=== PATIENT | female | born 1930 | race Caucasian/White ===

== ENCOUNTER 2017-01-08 21:02 | Inpatient (IN) | payer OTHER ==
[~2017-01-08] VITALS: Ht 152.4 cm; Wt 47.8 kg
--- NOTE | ~2017-01-08 | CON ---
[place], [place] REPORT OF CONSULTATION NAME: ADAMARIS FOWLER UNIT #: [id number] ROOM: [facility] DOCTOR: TEZ NEFFDARRIUSGISELLA BIRTHDATE: [birth year] DOS: 01/14/2017 REQUESTING PHYSICIAN: Dr. Davis. REASON FOR CONSULTATION: Elevated troponin. ASSESSMENT: 1. Current presentation for hip fracture. 2. Elevated troponin. 3. No cardiac complaints. 4. Long history of tobacco abuse. The patient quit 2 years ago. 5. Reported dementia. 6. Hyperlipidemia, currently the patient on Lipitor. 7. Negative CTA for pulmonary embolism. 8. Chronic obstructive pulmonary disease. 9. Stage III chronic kidney disease. PLAN: 1. Check CPK and MB. 2. Proceed with an echocardiogram. 3. Agree with Toprol-XL. 4. Continue aspirin/Lipitor. 5. I will hold any further test now pending the results of the echocardiogram. 6. We will consider ischemic workup and can be done as an outpatient as long as the patient is asymptomatic. 7. Early followup within 2-4 weeks upon discharge. HISTORY OF PRESENT ILLNESS: The patient is a pleasant 86-year-old female unknown to our practice, was referred by Dr. Davis for her evaluation of elevated troponin. She is status post hip fracture repair. The patient from the cardiology point of view denies any specific complaint. No chest pain, chest pressure, heaviness, tightness. No jaw pain. No left arm pain. No back pain. Denies any symptomatic palpitation or any associated dizziness, lightheadedness or near syncope. Functional capacity is quite limited due to her hip fracture. She sleeps usually on one pillow with no reported PND, orthopnea or pedal edema. Never had any heart problem in the past. No fever. No chills. No night sweats. Appetite is recovering. PAST MEDICAL HISTORY: As detailed in my assessment. SOCIAL HISTORY: The patient quit smoking 2 years ago. Denies any history of heavy alcohol or illicit drug abuse. FAMILY HISTORY: Not applicable in view of patient age. CURRENT MEDICATIONS: Levaquin, Lovenox, meropenem, albuterol, Toprol, Lipitor, aspirin, vitamin D, [place], Zofran, bisacodyl and Tylenol. ALLERGIES: The patient is allergic to PENICILLIN. [place], [place] REPORT OF CONSULTATION NAME: ADAMARIS FOWLRE UNIT #: [id number] ROOM: [facility] DOCTOR: DEVON REAGAN MD BIRTHDATE: [birth year] REVIEW OF SYSTEMS: Currently, the patient denies any headache, diplopia or blurry vision. No fever. No chills. No night sweats. No abdominal pain. No bright red blood per rectum or tarry stools. Admits to joint pain and muscular pain. No anxiety. No depression. No polyuria. No polydipsia. No skin rash. Review of other systems has been negative. PHYSICAL EXAMINATION: GENERAL: The patient is alert and oriented x 3, quite pleasant. VITAL SIGNS: The patient weighs 47.7 kilograms, height 5 feet tall, blood pressure 116/54, heart rate 78, respiratory rate of 16, temperature 98.1. HEENT: Extraocular muscle intact. Pupils equal, round, reactive to light. NECK: Good carotid upstroke. Unable to appreciate any bruit. HEART: S1, S2 with a faint holosystolic murmur at the left upper sternal border. No rub. No sternal heave. CHEST AND BACK: Not examined. LUNGS: Decreased air movement, but no marilou wheezing or rales. ABDOMEN: Soft, nontender, present bowel sounds. No masses. No bruits. LOWER EXTREMITIES: There is no edema, with faint distal pulses. NEUROLOGIC: Grossly nonfocal. SKIN: No significant rash. LABORATORY DATA: White count 6.8, hemoglobin 8.2, 79% of neutrophils. Potassium 3.6, creatinine 0.8, GFR more than 60. Troponin 0.321, followed by 0.37, then 0.34, then 0.54, then 0.79, initially on January 08 it was less than 0.015. DEVON REAGAN MD CM:CONSTR:REPORT OF CONSULTATION 1036 01/16/17 1547 interface
--- NOTE | ~2017-01-08 | PR ---
[place], [place] PROGRESS NOTE NAME: ADAMARIS FOWLER UNIT #: [id number] ROOM: [facility] DOCTOR: JASE HOWARD MD,SEN BIRTHDATE: [birth year] DOS: 01/15/2017 PULMONARY PROGRESS NOTE SUBJECTIVE: She has been comfortably resting on the bed and was getting physical therapy intermittently during the current hospitalization, has not been noted symptoms of chest pain or coughing. OBJECTIVE: VITAL SIGNS: Normal temperature, respiratory rate 17, heart rate 76, blood pressure 105/41. Pulse oxygen saturation on 2 liters cannula is 91% saturation. HEENT: No acute change. NECK: Supple. CARDIOVASCULAR: S1, S2 audible. LUNGS: Noted with generally decreased breath sounds without any wheeze or crackle. ABDOMEN: Soft, nontender. LABORATORY DATA: CBC: Hemoglobin 7.2, hematocrit 23.3, otherwise CBC normal. BMP normal: BUN and creatinine. IMPRESSION: The patient with resolving acute hypoxic respiratory failure, exacerbation of chronic obstructive pulmonary disease. Resolution of the small area of atelectasis left lower lobe and pleural effusion. PLAN OF MANAGEMENT: No changes from the pulmonary standpoint at this time. Anemia management per the primary care physician as well. Continuation of bronchodilators as well. Usual care. Other supportive plan of therapy and care. Titrate oxygen to maintain a saturation of 92% or greater. SEN LAGUNA MD CM:PNTRANS [id number] SEN HOWARD MD 01/16/17 0018 interface
--- NOTE | ~2017-01-08 | PR ---
[place], [place] PROGRESS NOTE NAME: ADAMARIS FOWLER UNIT #: [id number] ROOM: [facility] DOCTOR: JASE HOWARD MD,SEN BIRTHDATE: [birth year] DOS: 01/14/2017 SUBJECTIVE: The patient has been noted without any ongoing acute complaints at this time appeared to be comfortable without any distress. OBJECTIVE: VITAL SIGNS: For the patient which has been recorded showed normal temperature, respiratory rate 26-19, heart rate 78, blood pressure 116/54. The pulse oxygen saturation of the patient recorded on 3 liters 98% saturation. HEENT: Age-related changes. Head was atraumatic. Eyes nonicterus. NECK: Supple. CARDIOVASCULAR: S1, S2 audible. No added sounds. LUNGS: Noted clear to auscultation bilaterally. ABDOMEN: Flat, soft, nontender. EXTREMITIES: Without any edema. LABORATORY DATA: BMP: BUN 26, creatinine was normal. IMPRESSION: 1. The patient with resolving acute hypoxic respiratory failure. 2. Severe protein-calorie malnutrition was also noted. Prealbumin 10. 3. Loss of chronic muscle mass as well. 4. Status post surgery for the acute fracture of the right side with open reduction internal fixation. 4. Resolution of the atelectasis of the left lung. Small pleural fluid postoperatively with resolving acute hypoxic respiratory failure and acute exacerbation of chronic obstructive pulmonary disease. PLAN OF MANAGEMENT: No changes in the therapy at this time will be recommended. Continue the patient's current therapy, plan of management, bronchodilators. Supportive care. correction facility consultation was noted in progress. SEN LAGUNA MD CM:PNTRANS [id number] SEN HOWARD MD 01/15/17102 interface
--- NOTE | ~2017-01-08 | O ---
[place], [place] OPERATIVE NOTE NAME: ADAMARIS FOWLER UNIT #: [id number] ROOM: 523 DOCTOR: SHADI HAWK DO BIRTHDATE: [birth year] DOS: 01/09/2017 PREOPERATIVE DIAGNOSIS: Right intertrochanteric hip fracture. POSTOPERATIVE DIAGNOSIS: Right intertrochanteric hip fracture. PROCEDURE: Right intertrochanteric hip fracture fixation. ESTIMATED BLOOD LOSS: 50 mL. ASSISTANTS: Reji. ANESTHESIA: Maryanne, SUGEY, Spinal. INDICATIONS: The patient is an 86-year-old female with a history of an unwitnessed fall at home. She suffered a minimally displaced intertrochanteric fracture of the right hip. The risks and benefits of the procedure were explained to the patient and her daughter preoperatively. Preoperative labs and x-rays were obtained including preoperative optimization. DESCRIPTION OF PROCEDURE: The right hip was marked. The patient was taken to the operative suite. A spinal anesthetic was performed by Anesthesia. When this was found to be adequate, the patient was placed supine on the fracture table. The right lower extremity was extended with minimal traction using the fracture table. The left lower extremity was flexed and externally rotated and placed in a well-padded trough. The C-arm was utilized to evaluate the fracture site. The time out was performed. The right lower extremity was prepped and draped in the usual orthopedic fashion. The area just proximal to the greater trochanter was injected with Marcaine 0.25% with epinephrine. A 3 cm incision was made sharply with a scalpel. Subcutaneous tissue was spread down to the level of the fascia. The fascia was divided longitudinally. A self-retaining retractor was utilized. The partially threaded guidewire was advanced to the level of the greater trochanter and into the shaft. The position was evaluated under C-arm guidance in multiple planes. When this was found to be adequate, the cannulated reamer with a soft tissue protector were placed over the guidewire and advanced to the level of the lesser trochanter. The instrumentation was removed. The Synthes TFN nail was advanced under C-arm guidance to the desired level. This was evaluated under C-arm. The guide for the helical blade at 130 degree ankle was advanced to the level of the skin. The skin was injected with Marcaine with epinephrine and a small incision was made. Subcutaneous tissue was spread down to the level of the bone using hemostat. The trocars were advanced to the level of the bone. The guidewire was placed through these cannulas and advanced to the level of the subcortical bone of the femoral head. Position was evaluated under C-arm in multiple planes. Once this was found to be adequate, the length was measured. The reamer was set to 90 mm and advanced over the guidewire. The 90 mm helical blade was then advanced over the guidewire under C-arm guidance. When this was found to be adequate, the set [place], [place] OPERATIVE NOTE NAME: ADAMARIS FOWLER UNIT #: [id number] ROOM: 523 DOCTOR: SHADI HAWK DO BIRTHDATE: [birth year] screw was tightened proximally. The fracture site was evaluated and found to be reduced. Attention was then turned to the distal locking screw. The triple guides were advanced to the radiolucent guide and the skin was injected with Marcaine 0.25% with epinephrine. A 1 cm incision was made. Subcutaneous tissue was spread down to the level of the bone. The cannulas were advanced to the level of the bone. The cannulated drill was advanced from lateral to medial through the distal locking hole of the IM nail. The length was measured from the calibrated drill. A 34 mm distal locking screw was placed and evaluated under C-arm guidance in multiple planes. This was found to be adequate. The C-arm was utilized to evaluate the hardware and fracture site and the positioning was adequate with near anatomic reduction. All incisions were irrigated with normal saline and closed in a layered fashion with 0 Vicryl for the fascia, followed with 2-0 Vicryl for the subcutaneous level and skin ansley. The wounds were covered with Xeroform, 4 x 4s and Tegaderm. The patient was returned to a supine position. The patient was taken to the recovery room in satisfactory condition. Sponge and needle count correct. Estimated blood loss 50 mL. FINDINGS: Minimally displaced intertrochanteric fracture, right hip. COMPLICATIONS: None. SPECIMENS: None. DRAINS: None. PACKING: None. IMPLANTS: Synthes TFN 10 mm x 170 x 130 degree trochanteric nail, helical blade 11 x 90 mm, distal locking screw 4 mm x 34 mm. PREOPERATIVE ANTIBIOTICS: Clindamycin 600 mg. [place], [place] OPERATIVE NOTE NAME: ADAMARIS FOWLER UNIT #: [id number] ROOM: 523 DOCTOR: SHADI HAWK DO BIRTHDATE: [birth year] SHADI HAWK DO CM:OPRECORD:OPERATIVE NOTE [id number] SHADI HAWK DO 01/09/17 1617 interface
--- NOTE | ~2017-01-08 | PR ---
[place], [place] PROGRESS NOTE NAME: ADAMARIS FOWLER UNIT #: [id number] ROOM: [facility] DOCTOR: SEN ABREU MD BIRTHDATE: [birth year] DOS: 01/16/2017 ADDENDUM SUBJECTIVE: The patient was independently seen and examined today. History confirmed. Physical examination performed. All the available labs were reviewed. The note done by the lead medical technologist approved. The assessment and management changes were personally made for today's visit. She has been comfortably resting, sitting on the chair, awake and alert, and using oxygen supplementation nasal cannula. Denies any shortness of breath, coughing, or chest pain. OBJECTIVE: VITAL SIGNS: Normal temperature, respiratory rate 21, heart rate 77, blood pressure 109/64. Pulse oxygen saturation on 2 liters nasal cannula 98-100% saturation recorded. HEENT: Age-related changes. NECK: Supple. CARDIOVASCULAR: S1, S2 audible. LUNGS: [id number] decreased breath sounds without wheezing. ABDOMEN: Soft, nontender. LABORATORY DATA: CBC: Hemoglobin 7.5, hematocrit 24.4 was noted same as previously, and normal WBC and platelet count. The BMP was noted normal except CO2 of 33, which is also noted stable and elevated previously. IMPRESSION: 1. The patient with resolving acute respiratory failure as well as chronic obstructive pulmonary disease exacerbation, on bronchodilators. 2. Anemia. 3. Status post surgery for the hip fracture was also noted. 4. Severe debility with moderate severe protein calorie malnutrition and muscle mass loss. PLAN OF TREATMENT: 1. The patient will be continued on current plan of therapy at this time, would benefit from placement in correction facility. The social science analyst consultation in progress. 2. Anemia management for the patient or blood transfusion need to be determined by the primary care attending. [place], [place] PROGRESS NOTE NAME: ADAMARIS FOWLER UNIT #: [id number] ROOM: [facility] DOCTOR: SEN ABREU MD BIRTHDATE: [birth year] SEN LAGUNA MD CM:PNTRANS [id number] SEN HOWARD MD 01/16/172300 interface
--- NOTE | ~2017-01-08 | PR ---
[place], [place] PROGRESS NOTE NAME: ADAMARIS FOWLER UNIT #: [id number] ROOM: [facility] DOCTOR: SEN ABREU MD BIRTHDATE: [birth year] DOS: 01/13/2017 PULMONARY PROGRESS NOTE SUBJECTIVE: She has been noted comfortable at this time. Shortness of breath has been improving. There were no symptoms of chest pain. She has not been noted any temperature elevation. She has not reported any symptoms of hemoptysis. OBJECTIVE: VITAL SIGNS: The vital signs which has been recorded for the patient shows the temperature noted as normal. The respiratory rate is 18, heart rate 93, blood pressure 117/55. Pulse oxygen saturation on 2 L cannula is 100% saturation. HEENT: Examination showed no new change. NECK: Supple. CARDIOVASCULAR: S1, S2 audible. LUNGS: The patient was noted without any wheezing or crackle. Breath sounds are noted moderately decreased bilaterally. ABDOMEN: Soft, nontender. LABORATORY DATA: The patient's BMP: BUN 25, creatinine 1.04. The CBC this morning was noted with normal WBC count, hemoglobin 8.2, hematocrit 26.0, platelet count was normal. IMAGING STUDIES: The chest x-ray shows no acute pulmonary infiltration. All the abnormality, which has been noted previously with left lung is most likely related to atelectasis, has been resolved. IMPRESSION: The patient with acute postoperative respiratory failure with exacerbation of chronic obstructive pulmonary disease, responding to bronchodilators; atelectasis, postoperative, not uncommon, in the left lower lob is also resolving. PLAN OF MANAGEMENT: Continue with bronchodilators administration. Continuation of the oxygen supplementation as necessary to maintain saturation 90% greater. Ambulation, physical therapy was advised. Supportive care, plan of management. The patient would not require any use of corticosteroids since she has been showing progressive resolution of the current management of chronic obstructive pulmonary disease with current medical treatment. [place], [place] PROGRESS NOTE NAME: ADAMARIS FOWLER UNIT #: [id number] ROOM: [facility] DOCTOR: SEN ABREU MD BIRTHDATE: [birth year] SEN L[place] MD CM:PNTRANS 1321 [id number] SEN HOWARD MD 01/14/17 0617 interface
--- NOTE | ~2017-01-08 | PR ---
[place], [place] PROGRESS NOTE NAME: ADAMARIS FOWLER UNIT #: [id number] ROOM: [facility] DOCTOR: ADILENE ALAS DO BIRTHDATE: [birth year] DOS: 01/16/2017 SUBJECTIVE: Patient was evaluated today. She is awake and oriented and in no acute distress. She is responsive and states she is feeling much better today than she has in the past couple of days. She is denying any chest pain, any shortness of breath, any nausea, vomiting, diarrhea or any other symptoms. She is working with physical therapy and is eating her breakfast and states her appetite has improved. OBJECTIVE: VITAL SIGNS: Temperature 98.1, pulse 72, respiratory rate 20, blood pressure 107/37 with bedside pulse oximetry of 96% on nasal cannula. GENERAL: Awake, alert, oriented, no acute distress. CARDIAC: Regular rate and rhythm without murmurs. PULMONARY: Somewhat diminished breath sounds, but no crackles could be heard. Some scattered wheezes are present, however. ABDOMEN: Soft, nontender, nondistended. EXTREMITIES: No erythema, edema or nodules. PSYCHIATRIC: Appropriate affect, good historian. NEUROLOGIC: No acute focal neuro deficits. ASSESSMENT: Resolving acute hypoxic respiratory failure from chronic obstructive pulmonary disease exacerbation. Atelectasis is continuing to improve and patient overall clinically has improved. PLAN: Patient is okay for discharge as this becomes an option from the primary team's perspective. Currently, she is working with physical therapy and recommendations are for her to go to a custodial facility, for which the approval is pending. Otherwise, continue with current care. Thank you for the consultation and please see Dr. Laguna's note for any further details. ADILENE ALAS DO [place], [place] PROGRESS NOTE NAME: ADAMARIS FOWLER UNIT #: [id number] ROOM: [facility] DOCTOR: ADILENE ALAS DO BIRTHDATE: [birth year] SEN LAGUNA MD CM:RONAL [id number] ADILENE ALAS DO 01/17/17 0615 interface
--- NOTE | ~2017-01-08 | CON ---
[place], [place] REPORT OF CONSULTATION NAME: ADAMARIS FOWLER UNIT #: [id number] ROOM: [facility] DOCTOR: SEN ABREU MD BIRTHDATE: [birth year] DOS: 01/12/2017 REASON FOR CONSULTATION: For the assessment of acute respiratory failure. HISTORY OF PRESENT ILLNESS: The patient is an 86-year-old elderly female who fell down resulting in acute fracture of the right hip for this patient at home. The patient underwent surgical intervention upon admission for the hip fracture under spinal anesthesia. The patient has been known with history of COPD, the patient developed increased shortness of breath and developed progressive acute respiratory failure. She has been transferred to Intensive Care Unit. The oxygen supplementation has been given by the Venturi mask for the patient. This morning as the patient was seen, she was sitting on the chair. She has been noted awake and alert. She reports no symptoms of shortness of breath at rest. Denies symptoms of coughing, chest pain or wheezing. One of the daughters has been present with the patient in the room at the time of the assessment. The history partly has been given by the patient's daughter as well. REVIEW OF SYSTEMS: CONSTITUTIONAL: Symptoms of fatigue and tiredness reported. There were symptoms of fevers or chills. EYES: Denies any burning, redness, tenderness. EARS, NOSE, THROAT: No sore throat, hoarseness, otalgia, postnasal drainage. CARDIOVASCULAR: No anginal pain, edema, pain of the lower extremity. GASTROINTESTINAL: Dysphagia, nausea, vomiting, diarrhea, abdominal pain, hematemesis, melena. CENTRAL NERVOUS SYSTEM: No dizziness, headache, diplopia, syncopal episodes. Remaining systems were reviewed of the patient, they were noted all negative. PAST MEDICAL HISTORY: Known with history of: 1. COPD for the patient as per daughter. 2. Chronic hypoxic respiratory failure, use of oxygen 2 liter nasal cannula reported. SOCIAL HISTORY: The patient is , has 2 children, lives at home with the family members. Denies alcohol use, illicit drug use was known. She used to have tobacco, one and half pack of cigarettes per day that has been discontinued couple of years ago as per daughter. There was no history of chronic alcohol use reported. No history of illicit drug use described or any history of occupation related pulmonary exposure reported. PAST SURGICAL HISTORY: Known for this patient on current admission, the patient has right intertrochanteric fracture, surgery and fixation for the patient on 01/09/2017. MEDICATIONS: Current administered medication were noted use of Lovenox, DuoNeb, Lipitor, metoprolol succinate, aspirin, vitamin D, Levaquin, cefepime, vancomycin and other p.r.n. medications administration. DRUG ALLERGY HISTORY: The patient noted as allergy to PENICILLINS. [place], [place] REPORT OF CONSULTATION NAME: ADAMARIS FOWLER UNIT #: [id number] ROOM: [facility] DOCTOR: JASE HOWARD MD,SEN BIRTHDATE: [birth year] PHYSICAL EXAMINATION: GENERAL: This is an 86-year-old elderly female patient appeared to be quite malnourished with loss of muscle mass with patient obvious assessment. Height of 5 feet, weight of 105 pounds, BMI 20.5. VITAL SIGNS: Shows temperature recorded as normal. The patient in the last 3 days, respiratory 16-22, heart rate 83-76, blood pressure 121/52-150/50. Pulse oxygen saturation for the patient on 3 liter nasal cannula was 98% saturation, previously noted with 4 liters as 95% saturation. HEENT: Examination shows severe loss of muscle mass. The patient's head was atraumatic. Oral mucosa dry. Eyes nonicterus. NECK: Supple. CARDIOVASCULAR: S1, S2 audible. LUNGS: The patient was noted without any wheezing. Occasional crackles were present. The breaths are noted generally diminished bilaterally. ABDOMEN: Soft, nontender. Bowel sounds are present. EXTREMITIES: The patient noted loss of muscle mass. Skin for this patient visible was noted with some bruising and chronic skin changes secondary to aging. MUSCULOSKELETAL: No major deformities for the patient was visible. CENTRAL NERVOUS SYSTEM: Does not show any focal neurologic deficit. LABORATORY DATA: CBC of the patient that was done on admission, WBC count of 9.5, hemoglobin 11.7, hematocrit 36.3, platelet count was normal. The PT, PTT for the patient on 01/09/2016 was normal as well on admission. CMP of the patient 01/08/2017 noted with normal BUN and creatinine, CO2 33. CT scan of the head for the patient 01/09/2017, was reported as no acute intracranial pathologies as well. CBC of this morning: WBC count was normal, hemoglobin 8.1, hematocrit 25.3, platelet count was normal. The BMP of patient that was done this morning, BUN 26, creatinine was normal, remaining electrolytes were normal. Arterial blood gas for the patient on 01/12/2017, pH of 7.35, pCO2 of 35, pO2 of 24. Venous blood gas on 50% oxygen, 35% oxygen supplementation Venturi mask, pH of 7.37, pCO2 of 52, pO2 of 74.4. Troponin for the patient noted minimally elevated this morning at 0.373 and 0.321. Review of the radiology data for this patient. The x-ray of the right hip for this patient that was done on 01/08 was reported intertrochanteric fracture of the right femur. The chest x-ray of the patient that was done on 01/08 shows changes of COPD were reported. There were no acute pulmonary infiltration or other abnormalities. Chest x-ray 01/09 was repeated, which showed the same finding. The patient's CT of the chest that was done on 01/07/2017 was also seen. There was no pulmonary embolism was visible. Lung parenchymal window for this patient, which were done was reviewed, showed this is not high resolution CT scan of the chest, however, possibility of some subpleural area of fibrosis was noted with honeycombing in the lungs with centrilobular emphysema changes were noted in the remaining lungs. There was no evidence of pulmonary embolism or any evidence of abnormal lymphadenopathy in the mediastinum or hilar area. One view chest x-ray, which was done 01/12/2017 for the patient was also reviewed. It shows small pleural fluid noted with possible area of atelectasis. Other changes of COPD, hyperinflation, remains the same. Some scoliosis of the [place], [place] REPORT OF CONSULTATION NAME: ADAMARIS FOWLER [place] UNIT #: [id number] ROOM: [facility] DOCTOR: JASE HOWARD MD,SEN BIRTHDATE: [birth year] thoracic spine was also visible. IMPRESSION: 1. The patient who has been currently admitted to the hospital noted with acute hypoxic respiratory failure with history of chronic hypercapnia and respiratory failure. The respiratory failure developed most likely secondary to the possibility of fluid overload, some area of atelectasis. There were no clinical signs for the patient consistent with acute pneumonia at the present time. 2. Possibility of interstitial pulmonary fibrosis cannot be completely excluded for this patient current assessment. 3. The patient with severe debility, muscle decondition was also seen and elderly status of the patient with very poor muscle mass. There was no finding for the patient described for the dysphagia. 4. Chronic metabolic alkalosis secondary to resting hypercarbia secondary to underlying COPD. PLAN OF TREATMENT: At the present time, monitoring to be continued. Obtain a PA lateral view chest x-ray in the morning. Give one dose of Lasix for the patient 40 mg daily as well. Repeat PA lateral chest x-ray to assess the current pleural fluid. Assess the echocardiogram results as well. Addition of the Dulera for the patient long-term management of COPD as well. Other supportive plan of management and care to be continued. Metabolic alkalosis secondary to chronic hypercarbia will be monitored. Obtain a prealbumin level in the morning. Nutrition support. Physical therapy and other plan of management and care. Continue oxygen supplementation to maintain a saturation of 92% or greater. The BiPAP at this time would not be needed. However, in case of worsening of the respiratory failure or hypoxia, certainly the BiPAP support could be used at that time. Thank you for allowing me to participate in the care of this patient. SEN LAGUNA MD CM:CONSTR:REPORT OF CONSULTATION 1159 01/13/17 0415 interface
--- NOTE | ~2017-01-08 | PR ---
[place], [place] PROGRESS NOTE NAME: ADAMARIS FOWLER [facility] #: [id number] UNIT #: [id number] ROOM: 410 DOCTOR: ADRIÁN PAIZ MD BIRTHDATE: [birth year] DOS: 01/11/2017 SUBJECTIVE: The patient was seen at her bedside today, 01/11/2017, for followup of her elevated troponin. She is an 86-year-old woman who had an unwitnessed fall at home. She was found to have a right hip fracture, which was repaired on 01/09/2017. Perioperatively, she was found to have an elevation in troponin at 0.079. This adrianne to 0.548. We were asked to comment on the significance of this finding. The patient continues to deny any chest pain. She is chronically short of breath and states that this has not changed. As noted by others, she does seem a bit confused. PHYSICAL EXAMINATION: VITAL SIGNS: Today, her pulse is 86 and regular, blood pressure is 150/50. She weighs 47.8 kg and has a body mass index of 20.6. NECK: Supple. She has no jugular distention. Carotids are full. LUNGS: Respirations are unlabored. Her chest is clear to auscultation and percussion. HEART: Has a regular rhythm with an S4 gallop. ABDOMEN: Soft and normally active. EXTREMITIES: Showed no edema. LABORATORY DATA: I did review her echocardiogram today. It shows normal left ventricular size, wall thickening and systolic function. She has aortic sclerosis as well as mitral annular calcification. She has no aortic stenosis and only mild mitral insufficiency. She does have moderate tricuspid insufficiency with Doppler evidence for moderately elevated right ventricular systolic pressures. Hemoglobin today is 8.9, hematocrit 28.8 with 9100 white cells. Sodium is 142, potassium 4.1, chloride 106, CO2 29, BUN 27, creatinine 0.97. A chest x-ray done on 01/09/2017 showed no acute disease. A CT scan of her chest that same date showed no evidence for pulmonary emboli, but she had chronic parenchymal changes consistent with emphysema. IMPRESSION: 1. Status post hip fracture from an unwitnessed fall with subsequent repair. The patient is unable to recall the fall and could not describe its mechanism. 2. Mild protein-calorie malnutrition. 3. Dementia. 4. Chronic obstructive pulmonary disease with history of previous cigarette abuse. 5. Elevated troponin, found incidentally. Echocardiogram shows no wall motion abnormality. PLAN: I agree with treating the patient with empiric beta blockers and aspirin and would consider a statin as well. A pharmacologic stress test after she has recovered somewhat would be helpful for risk stratification. We will continue to follow her intermittently in the hospital. I thank the hospitalist physicians for asking our advice regarding her care. [place], [place] PROGRESS NOTE NAME: ADAMARIS FOWLER UNIT #: [id number] ROOM: 410 DOCTOR: ADRIÁN PAIZ MD BIRTHDATE: [birth year] ADRIÁN PAIZ MD CM:PNTRANS 00 [id number] ADRIÁN PAIZ MD 01/11/172224 interface
--- NOTE | ~2017-01-08 | PR ---
[place], [place] PROGRESS NOTE [id number] UNIT #: [id number] ROOM: [facility] DOCTOR: DEVON REAGAN MD BIRTHDATE: [birth year] DOS: 01/16/2017 SUBJECTIVE: The patient is sitting up in a chair, does not appear in any distress. Denies any specific cardiac complaint. No chest pain, chest pressure, heaviness or tightness. No symptomatic palpitation. OBJECTIVE: VITAL SIGNS: Blood pressure 158/82, heart rate 99, respiratory rate of 14, temperature 97.4. NECK: Good upstroke, no bruit. HEART: S1, S2 with no rub. LUNGS: Decreased air movement, but no wheezing, no rales. EXTREMITIES: Lower extremities, no edema. ASSESSMENT AND PLAN: 1. Current admission for a hip fracture. The patient reported to have elevated troponin following her surgery. The echocardiogram confirmed normal LV function with no evidence of wall motion abnormalities. The patient continued to do well. Denies any specific cardiac complaint. At this time, I will continue with current medical regimen, but will increase the Toprol to twice a day. 2. Ischemic workup will be considered as an outpatient. The patient is cleared for rehabilitation and discharge. We will be seeing the patient on an outpatient within 4-6 weeks upon discharge. DEVON REAGAN MD CM:PNTRANS [id number] DEVON REAGAN MD 01/17/17 1705 interface
[~2017-01-08 21:02] MED LIST: ALBUTEROL2.5 MG/0.5 INH; ASPIRIN81 M2 PO; COMBIVENT RESPIM4 GM INH; EVISTA60 MG PO; LEVAQUIN750 MG PO; LIPITOR20 MG PO; NICOTINE PATCH1 EAC1 TD; OXYGEN NAS; SYNTHROID0.137 MG PO; SYNTHROID0.15 MG PO
[2017-01-08 21:09] VITALS: BP 158/75
--- NOTE | 2017-01-08 22:07 | NUR ---
LAST DOCTOR PATIENT SEEN WAS A DR. PRATEEK ALFORD.
[2017-01-08 22:08] LABS: BASO # 0.1 10*3/uL (0.0-0.1); BASO % 0.5 % (0.0-1.0); EOS # 0.2 10*3/uL (0.0-0.4); EOS % 1.6 % (1.0-4.0); HEMATOCRIT 36.3 % (37.0-47.0); HEMOGLOBIN 11.7 g/dl (12.0-16.0); LYMPH # 0.7 10*3/uL (1.3-4.4); LYMPH % 7.4 % (27.0-41.0); MEAN CELL VOLUME 91.7 fl (81.0-99.0); MEAN CORPUSCULAR HGB 29.5 pg (27.0-31.0); MEAN CORPUSCULAR HGB CONC 32.2 g/dl (33.0-37.0); MONO # 0.5 10*3/uL (0.1-1.0); MONO % 4.7 % (3.0-9.0); NEUT # 8.1 10*3/uL (2.3-7.9); NEUT % 85.2 % (47.0-73.0); PLATELET COUNT AUTOMATED 230 10*3/uL (130-400); RED BLOOD COUNT 3.96 10*6/uL (4.10-5.10); RED CELL DISTRI WIDTH 12.5 % (0-14.5); WHITE BLOOD COUNT 9.5 10*3/uL (4.8-10.8)
[2017-01-08 22:09] LABS: BILIRUBIN NEGATIVE (NEGATIVE); BLOOD 1+ (NEGATIVE); CLARITY CLEAR (CLEAR); COLOR YELLOW (YELLOW); GLUCOSE NEGATIVE (NEGATIVE); KETONE NEGATIVE (NEGATIVE); LEUKO ESTERASE NEGATIVE (NEGATIVE); NITRITE NEGATIVE (NEGATIVE)
[2017-01-08 22:15] LABS: BACTERIA TRACE; WBC 0-2 wbc/hpf (0-5)
[2017-01-08 22:17] LABS: ACT PARTIAL THROMBO TIME 25.6 SECONDS (20.8-31.5); COARSE GRANULAR CAST 0-2; INTERNATIONAL NORM RATIO 1.1 (2.0-3.5)
[2017-01-08 22:26] LABS: ALBUMIN 3.4 gm/dl (3.1-4.5); ALKALINE PHOSPHATASE 100 U/L (45-117); BUN 14 mg/dl (7-24); CHLORIDE 98 mmol/L (98-107); POTASSIUM 3.9 mmol/L (3.5-5.1); SGOT/AST 18 IU/L (3-35); SGPT/ALT 15 U/L (12-78); SODIUM 138 mmol/L (136-145); TOTAL PROTEIN 7.7 gm/dL (6.4-8.2); TROPONIN I < 0.015 ng/ml (<0.045)
[2017-01-08 22:51] VITALS: BP 118/74
[2017-01-08 23:10] VITALS: BP 158/59
[2017-01-09] VITALS (8 sets, daily range): BP systolic 116–160; BP diastolic 51–82
--- NOTE | 2017-01-09 00:10 | NUR ---
PATIENT REFUSED TO HAVE PICTURES OF R. SHOULDER SKIN TEAR TAKEN.
--- NOTE | 2017-01-09 01:00 | NUR ---
DR. WEBER TO FLOOR TO SEE PATIENT. NOTIFIED OF SKIN TEAR R. SHOULDER.
--- NOTE | 2017-01-09 01:38 | NUR ---
PATIENT MEDICATED SLOWLY WITH ZOFRAN PER PRN ORDER FOR C/O NAUSEA . SEE EMAR. REINFORCED USE OF CALL LIGHT.
[2017-01-09 06:34] LABS: HEMATOCRIT 34.5 % (37.0-47.0); HEMOGLOBIN 10.9 g/dl (12.0-16.0); MEAN CELL VOLUME 92.5 fl (81.0-99.0); MEAN CORPUSCULAR HGB 29.2 pg (27.0-31.0); MEAN CORPUSCULAR HGB CONC 31.6 g/dl (33.0-37.0); MEAN PLATELET VOLUME 10.4 fl (9.6-12.3); PLATELET COUNT AUTOMATED 212 10*3/uL (130-400); RED BLOOD COUNT 3.73 10*6/uL (4.10-5.10); RED CELL DISTRI WIDTH 12.5 % (0-14.5); WHITE BLOOD COUNT 10.1 10*3/uL (4.8-10.8)
--- NOTE | 2017-01-09 07:01 | NUR ---
PHYSICAL THERAPY Orders received. PAtient with the following fracture right LE: IMPRESSION: Intertrochanteric fracture of the right femur. Will require orthopedic consultation and possible surgery. Will await orthopedic advisement prior to initating PT. Thank you for this referral. Morena Galicia,PT
[2017-01-09 07:03] LABS: BUN 15 mg/dl (7-24); CHLORIDE 100 mmol/L (98-107); CHOLESTEROL 211 mg/dL (<200); HDL CHOLESTEROL 53 mg/dl (40-60); LDL CHOLESTEROL 142 mg/dL (9-159); PHOSPHOROUS 3.2 mg/dL (2.5-4.9); SODIUM 138 mmol/L (136-145); TRIGLYCERIDES 81 mg/dl (<150); VLDL CHOLESTEROL 16 mg/dL (6-40)
[2017-01-09 07:10] LABS: PLATELET SUFFICIENCY NORMAL (NORMAL); TOTAL CELLS COUNTED 100 #CELLS
--- NOTE | 2017-01-09 07:44 | NUR ---
Occupational Therapy referral received this date. Upon chart review x-rays reveal right intertrochanteric femur fracture. OT will await further OT activity orders following orthopedic consult. Thank you for this referral. Heather Cabrera OTR/l
[2017-01-09 07:57] LABS: VITAMIN D, 25-HYDROXY 13.6 ng/mL (30-100)
--- NOTE | 2017-01-09 08:00 | NUR ---
PATIENT IS RESTING COMFORTABLY IN BED. FAMILY IS AT THE BEDSIDE. PATIENT DENIES ANY PAIN AT THIS TIME. PATIENT DENIES ANY SOB OR DISCOMFORT ON 4LPM VIA NC. PATIENT IS BEDFAST DUE TO HIP FX THAT IS EXTERNALLY ROTATED. PATIENT IS A&OX3 AND CALL LIGHT WITHIN REACH. HOB ELEVATED. SEE ASSESSMENT.
--- NOTE | 2017-01-09 09:16 | NUR ---
DC ELECTROLYSIS ENGINEER WILL SEE FOR POSS SNF STAY.
--- NOTE | 2017-01-09 09:23 | NUR ---
DR. COTA IN TO SEE PATIENT. NO FURTHER ORDERS AT THIS TIME.
--- NOTE | 2017-01-09 09:27 | NUR ---
DR. HAWK CONSULTED ABOUT HIP FRACTURE. PATIENT NPO IN CASE CARINE IS ABLE TO COME DOWN FOR SURGERY TODAY.
--- NOTE | 2017-01-09 09:51 | NUR ---
In to see patient to discuss discharge plans. Patient lives at home with her daughter who assists in her ADL's. Does not have any equipment at home such as walker/wheelchair/cane. Does have oxygen at home 24 hours/day, she can't remember the oxygen company but says it is in [place]. Discussed snf placement, explained with her insurance the only snf facility that is in network is the [facility] in [facility], patient is fine with that. Also explained due to the holiday week with insurance companies closing she will not be able to get a pre authorization until approximately Saturday of next week. She says that is fine and wants to do whatever she needs to do to get better. Will fax referral when all clinicals, PT/OT evals are available.
--- NOTE | 2017-01-09 10:51 | NUR ---
PATIENT OFF THE FLOOR VIA BED TO SURGERY FOR RIGHT HIP FIXATION.
--- NOTE | 2017-01-09 11:25 | NUR ---
WENT INTO PATIENT'S ROOM TO EVALUATE WOUND TO RIGHT SHOULDER. PATIENT NOT IN ROOM AT PRESENT TIME NURSE STATED WAS IN SURGERY.
--- NOTE | 2017-01-09 14:12 | NUR ---
PHYSICAL THERAPY PAtient just arrived in room from surgery. Not appropriate for PT at this time. Sleeping and groggy. Thank you for this referral. Morena Galicia,PT
--- NOTE | 2017-01-09 14:13 | NUR ---
Occupational Therapy referral received. Patient just returned to medical floor from surgery. She is not awake or alert to participate in evaluation at his time. OT will attempt at a later time/date. Thank you for this referral. Heather Cabrera OTR/L
--- NOTE | 2017-01-09 15:31 | NUR ---
PHYSICAL THERAPY PAtient evaluated on 5, full evaluation to follow. Continue with PT as per plan of care with fall, acute fracture right femur s/p ither nailing or ORIF (surgical consult and note incomplete at time of eval), alarm and max (A) precautions. PAtient will require SNF for impaired mobility. PAtient is high complexity via chart review, tests and evaluation: 22868. Thank you for this referral. Morena Galicia,PT
--- NOTE | 2017-01-09 15:50 | NUR ---
Occupational Therapy evaluation completed this date on 5 with full eval to follow. Precautions include: WBAT RLE, IV UE, fall risk, hx of falls, dementia; disorientation, poor sit balance, lethargy, high complexity level. Recommend OT per POC and SNF upon d/c to enable return home at indep level. Thank you for this referral. Heatehr Cabrera OTR/l
--- NOTE | 2017-01-09 16:10 | NUR ---
NOTIFIED OF DYSPNEA AND OXYGEN SATURATION IN THE 70'S PATIENT IS NOW ON A NON-REBREATHER PLACED BY RESPIRATORY. WILL CONTINUE TO MONITOR AND THEN TITRATE DOWN.
--- NOTE | 2017-01-09 16:31 | NUR ---
PATIENT BEING TRANSFERRED TO ICCU-1. DR. DE JESUS SENDING PATIENT DOWN FOR EPISODE OF DYSPNEA.
[2017-01-09 17:04] LABS: TROPONIN I 0.079 ng/ml (<0.045)
--- NOTE | 2017-01-09 17:30 | NUR ---
RECEIVED INTO ICCU-[address] SCAN/5E ACCOMPANIED BY VIDA RN. HEART RATE 113. BP 160/63. PULSE OX 93% ON VENTURI MASK 35%. LUNGS CLEAR BILATERALLY. NO EDEMA NOTED. ALERT AND ORIENTED TIMES THREE. HAMM DRAINING CLEAR YELLOW URINE. SCD'S INTACT TO BILATERAL LEGS.
--- NOTE | 2017-01-09 17:56 | NUR ---
MEDICATED WITH TORADOL IV FOR COMPALINTS OF PAIN AND MOANING.
--- NOTE | 2017-01-09 19:29 | NUR ---
ATTEMPTED TO INSTRUCT PATIENT IN USE OF INCENTIVE SPIROMETERY. PATIENT AT THE TIME WAS CONFUSED AND HAD A HARD TIME UNDERSTANDING WHAT I WAS INSTRUCTING HER TO DO. INCENTIVE IN THE ROOM.
--- NOTE | 2017-01-09 22:39 | NUR ---
Shift chart check completed.24 HR chart check completed.
--- NOTE | 2017-01-09 23:41 | NUR ---
ON ASSESSMENT PATIENT AWAKENED FROM SOUND SLEEP FOR ASSESSMENT. SHE DENIED PAIN.ICE BAG REFRESHED TO RT HIP. DRESSING IS DRY AND INTACT.BILATERAL SCD'S ON. PEDAL PULSES PALPABLE. 35% VENTURI MASK IN PLACE WITH PULSE OX 96%. HAMM PATENT YELLOW URINE. SKIN WARM AND DRY. SEE ALL APPROPRIATE INTERVENTIONS.
[2017-01-10] VITALS (7 sets, daily range): BP systolic 90–127; BP diastolic 43–79
--- NOTE | 2017-01-10 02:50 | NUR ---
PT WAS REPOSITIONED FOR COMFORT, HER IV FOUND TO BE LEAKING. A NEW IV SITE OBTAINED LEFT FOREARM. BEDBATH/LINEN CHANGE. PT SAYS SHE USES A "CPAP" AT HOME AT NIGHT. NASAL CANNULA APPLIED AT 3L/MIN AND HER PULSE OX HAS BEEN STAYING >95%.
[2017-01-10 04:33] LABS: BASO # 0.1 10*3/uL (0.0-0.1); BASO % 0.5 % (0.0-1.0); EOS # 0.1 10*3/uL (0.0-0.4); EOS % 0.7 % (1.0-4.0); HEMATOCRIT 29.3 % (37.0-47.0); HEMOGLOBIN 9.4 g/dl (12.0-16.0); LYMPH # 0.5 10*3/uL (1.3-4.4); LYMPH % 5.3 % (27.0-41.0); MEAN CELL VOLUME 94.5 fl (81.0-99.0); MEAN CORPUSCULAR HGB 30.3 pg (27.0-31.0); MEAN CORPUSCULAR HGB CONC 32.1 g/dl (33.0-37.0); MEAN PLATELET VOLUME 10.7 fl (9.6-12.3); MONO # 0.7 10*3/uL (0.1-1.0); MONO % 7.2 % (3.0-9.0); NEUT # 8.6 10*3/uL (2.3-7.9); NEUT % 85.9 % (47.0-73.0); PLATELET COUNT AUTOMATED 161 10*3/uL (130-400)
[2017-01-10 04:57] LABS: ALBUMIN 2.7 gm/dl (3.1-4.5); ALKALINE PHOSPHATASE 77 U/L (45-117); BUN 14 mg/dl (7-24); CHLORIDE 104 mmol/L (98-107); CREATININE 1.04 mg/dL (0.55-1.02); PHOSPHOROUS 3.7 mg/dL (2.5-4.9); POTASSIUM 4.3 mmol/L (3.5-5.1); SGOT/AST 22 IU/L (3-35); SGPT/ALT 17 U/L (12-78); SODIUM 142 mmol/L (136-145); TOTAL PROTEIN 6.2 gm/dL (6.4-8.2)
--- NOTE | 2017-01-10 06:18 | NUR ---
PT YELLING OUT THAT HER RT HIP/LEG HURTING. MEDICATED WITH MORPHINE 2MG IV SLOWLY FOR PAIN "10"/10. ICE BAG REFRESHED TO HER OPERATIVE SITE.
--- NOTE | 2017-01-10 06:56 | NUR ---
SLEEPING SOUNDLY SINCE EARLIER MORPHINE, WITH NO FURTHER MOANING.
--- NOTE | 2017-01-10 11:29 | NUR ---
NOTIFIED OF TROPONIN RESULT.
--- NOTE | 2017-01-10 11:38 | NUR ---
PAGED REGARDING NEW CONSULT.
--- NOTE | 2017-01-10 11:40 | NUR ---
RETURNED CALL. INFORMED OF NEW CONSULT ORDER. NEW ORDER RECEIVED FOR ECHOCARDIOGRAM AM.
--- NOTE | 2017-01-10 13:09 | NUR ---
PHYSICAL THERAPY Pt was transfered to ICU, spoke with nursing and they contacted doctor for a new order to re-eval when medically appropriate. Briana Campuzano, CORPORATE WEBMASTER
--- NOTE | 2017-01-10 14:35 | NUR ---
Occupational Therapy Daily Note Pt move to ICCU this date. Doctor will resubmit orders when appropriate. ADRY Lynch/Adeola
--- NOTE | 2017-01-10 19:45 | NUR ---
PATIENT PUT BACK IN BED, AFTER BEING IN CHAIR FOR ABOUT 3.5HRS. PATIENT STOOD WELL, THEN STATED HER RIGHT LEG WOULDNT MOVE. PATIENT WAS ABLE TO TAKE A FEW STEPS TO THE BED. PATIENT STATED SHE HAD LITTLE PAIN WITH THE MOVE. PATIENT STATED SHE WANTED TO GO TO BED, AND REQUESTED HER 2200 MEDS EARLY. PATIENT GIVEN HER LIPITOR, LEFT WITH CALL LIGHT IN REACH.
[2017-01-11] VITALS: BP 109/52
--- NOTE | 2017-01-11 01:00 | NUR ---
PATIENT AWOKE DISORIENTED. THOUGHT SHE SEEN SOMEONE IN THE WINDOW. I REORIENTED HER, SHE STATED SHE KNEW SHE WAS IN THE HOSPITAL, BUT THOUGHT SINCE THE SURGERY WAS DONE, SHE WAS ABLE TO GET UP AND GET DRESSED. I EXPLAINED TO PATIENT SHE NEEDED THERAPY AND OTHER TEST TODAY. PATIENT DID KNOW TO USE HER CALL LIGHT TO CALL ME. WILL CONTINUE TO MONITOR. PATIENT IN VIEW OF STAFF.
[2017-01-11 04:00] VITALS: BP 125/47
--- NOTE | 2017-01-11 05:00 | NUR ---
PATIENT PULLED OFF BANDAGE TO INCISION, PATIENT YELLING SHE WANTS TO GET OUT OF HERE. PATIENT ALSO REMOVED BRANDING MACHINE OPERATOR. STATED WE ARE NOT KEEPING HER HERE. REORIENTED PATIENT, SHE BECAME APOLOGETIC AND ALLOWED ME TO REPLACE THE BANDAGE AND PLACE HEART MONITOR BACK ON. WILL CONTINUE TO MONITOR.
[2017-01-11 05:27] LABS: BASO # 0.1 10*3/uL (0.0-0.1); BASO % 0.5 % (0.0-1.0); EOS # 0.4 10*3/uL (0.0-0.4); EOS % 4.8 % (1.0-4.0); HEMATOCRIT 28.8 % (37.0-47.0); HEMOGLOBIN 8.9 g/dl (12.0-16.0); LYMPH # 0.7 10*3/uL (1.3-4.4); LYMPH % 7.2 % (27.0-41.0); MEAN CELL VOLUME 93.8 fl (81.0-99.0); MEAN CORPUSCULAR HGB CONC 30.9 g/dl (33.0-37.0); MEAN PLATELET VOLUME 10.9 fl (9.6-12.3); MONO # 0.7 10*3/uL (0.1-1.0); MONO % 7.2 % (3.0-9.0); NEUT # 7.3 10*3/uL (2.3-7.9); NEUT % 79.9 % (47.0-73.0); PLATELET COUNT AUTOMATED 175 10*3/uL (130-400); RED BLOOD COUNT 3.07 10*6/uL (4.10-5.10); RED CELL DISTRI WIDTH 13.2 % (0-14.5); WHITE BLOOD COUNT 9.1 10*3/uL (4.8-10.8)
[2017-01-11 05:41] LABS: CHLORIDE 106 mmol/L (98-107); CREATININE 0.97 mg/dL (0.55-1.02); POTASSIUM 4.1 mmol/L (3.5-5.1); SODIUM 142 mmol/L (136-145)
[2017-01-11 05:42] LABS: PHOSPHOROUS 1.8 mg/dL (2.5-4.9)
[2017-01-11 05:44] LABS: BUN 27 mg/dl (7-24)
[2017-01-11 07:57] VITALS: BP 146/76
--- NOTE | 2017-01-11 10:54 | NUR ---
PHYSICAL THERAPY Physical Therapy Evaluation completed this date. See eval document for further details. Will begin PT intervention to address the impairments of limited ROM, muscle weakness, decreased functional mobility I, and difficulty ambulating during inpnt stay. Recommend SN[place] d[place] [id number] based on chart review and PT eval. Debbie Dunn, PT
[2017-01-11 12:00] VITALS: BP 142/70
--- NOTE | 2017-01-11 12:11 | NUR ---
PHYSICAL THERAPY Kristin was seen this PM 1:1 for her physical therapy treatment. Pt was moved out of ICCU 1, to 410-1 now. Pt on 3 L o2, up in her bedside chair and daughter present, and has a cath in. With verbal cueing transfer sit/stand, standing balance with wheeled walker MOD A X 1. Then gait 8-9 steps with MOD EXPLOSIVE EXPERT X 1, with W/W and is WBAT right LE, asking to sit due to being SOB with this. Pt sitting and resting and said thats all today no more. MANJIT KAMARA VP MARKETING.
[2017-01-11 16:00] VITALS: BP 150/50
--- NOTE | 2017-01-11 18:12 | NUR ---
prn tylenol given for pt comfort. pt denies pain.
--- NOTE | 2017-01-11 18:41 | NUR ---
PT IS UP IN GLO CHAIR , APPEARS COMFORTABLE, ATE 100 % OF HER DINNER. PT IS STILL CONFUSED. PT HAS URINATED ONCE SINCE THE HAMM WAS REMOVED, SHE IS INCONTINENT. PT ALSO HAD SM FORMED BM.
[2017-01-11 20:00] VITALS: BP 148/56
--- NOTE | 2017-01-11 20:52 | NUR ---
PATIENT MEDICATED WITH PRN RESTORIL ORDERED FOR INSOMNIA AND PATIENT BEING RESTLESS. SHE IS OOB IN GLO CHAIR AT THIS TIME, AND SHOUTING OUT THE HALLWAY. SHE IS ALERT BUT CONFUSED. NO SXS OF DISTRESS AT THIS TIME, RESPIRATIONS EASY/REG ON 3L NC. PATIENT DENIES ANY PAIN AT THIS TIME. WILL MONITOR.
--- NOTE | 2017-01-11 23:56 | NUR ---
PATIENT WAS BEING TRANSFERRED BACK IN TO BED FROM HER GLO CHAIR. HER VITALS WERE BEING TAKEN PRIOR TO MOVING HER AND SHE WAS DESATTING IN THE 60-70S A NONRBREATHER WAS PLACED AND PATIENTS SATS WENT BACK TO >92. WHEN SHE WAS STABLE ON THE NON REBREATHER WE TRIED TRANSFERING HER BACK TO NASAL CANULA AND SHE BEGAN TO DESAT AGAIN. SHE WAS SUCTIONED AND HER SATS WERE FLUCTUATING. SHE IS CURRENTLY ON 50% VENTURI AND HER SATS ARE >92%. SHE IS MORE AWAKE NOW AND BEGINING TO TALK TO THE NURSES AGAIN WHICH WAS HER BASELINE BEFORE THE EVENT. DR CONTRERAS MADE AWARE AND GAVE ORDERS TO TRANSFER HER TO THE ICCU.
[2017-01-12] VITALS: BP 120/64
--- NOTE | 2017-01-12 00:43 | NUR ---
PATIENT TRANSFERED TO ICCU BED 1 WITH ALL BELONGINGS. REPORT GIVEN TO ADITI MCLAIN.
--- NOTE | 2017-01-12 00:45 | NUR ---
PT TRANSFERRED TO ICU #1 FROM . PT AWAKE BUT DROWSY. BP 120/64, T 97.6(A), P 69, R 21, POX 100% ON 50% VENTURI. HEPLOCK PATENT IN LEFT ARM. RESP NONLABORED. LUNGS HAVE FINE CRACKLES IN BASES. SKIN WARM TO TOUCH. HRR. NS ON MONITOR.
--- NOTE | 2017-01-12 01:00 | NUR ---
DR Hector CONTRERAS HERE AND NEW ORDERS RECEIVED.
[2017-01-12 01:27] LABS: ABG BASE EXCESS 3.2 mmol/L (-2.0-2.0); ABG O2 SATURATION 41.9 % (95-97); ARTERIAL BLOOD GAS PCO2 53.1 mmHg (35-45); ARTERIAL BLOOD GAS PH 7.353 (7.35-7.45)
[2017-01-12 01:28] LABS: ARTERIAL BLOOD GAS PO2 24.5 mmHg (80-90)
[2017-01-12 01:47] LABS: ABG HCO3 29.8 mmol/l (22-26); ABG O2 SATURATION 94.6 % (95-97); ARTERIAL BLOOD GAS PCO2 52.4 mmHg (35-45); ARTERIAL BLOOD GAS PH 7.37 (7.35-7.45); ARTERIAL BLOOD GAS PO2 74.4 mmHg (80-90)
--- NOTE | 2017-01-12 01:55 | NUR ---
NOEMI'S OBTAINED AND DR LAGUNA NOTIFIED OF CONSULT. NO NEW ORDERS RECEIVED AT THIS TIME. A 16FR HAMM INSERTED WITHOUT DIFFICULTY WITH 200CC OF CLEAR YELLOW URINE.
[2017-01-12 02:54] LABS: BUN 26 mg/dl (7-24); CHLORIDE 106 mmol/L (98-107); CREATININE 0.81 mg/dL (0.55-1.02); SODIUM 139 mmol/L (136-145)
--- NOTE | 2017-01-12 03:00 | NUR ---
HEPLOCK OUT, NEW HEPLOCKS PLACED IN LEFT AC AND RIGHT ARM. GOOD BLOOD RETURN AND FLUSHED WITHOUT DIFFICULTY.
[2017-01-12 04:00] VITALS: BP 112/58
[2017-01-12 06:31] LABS: BASO % 0.4 % (0.0-1.0); EOS # 0.3 10*3/uL (0.0-0.4); HEMATOCRIT 25.3 % (37.0-47.0); HEMOGLOBIN 8.1 g/dl (12.0-16.0); LYMPH # 0.8 10*3/uL (1.3-4.4); MEAN CELL VOLUME 92.7 fl (81.0-99.0); MEAN CORPUSCULAR HGB 29.7 pg (27.0-31.0); MONO # 0.9 10*3/uL (0.1-1.0); MONO % 11.7 % (3.0-9.0); NEUT # 5.8 10*3/uL (2.3-7.9); NEUT % 73.6 % (47.0-73.0); PLATELET COUNT AUTOMATED 174 10*3/uL (130-400); RED BLOOD COUNT 2.73 10*6/uL (4.10-5.10); RED CELL DISTRI WIDTH 13.2 % (0-14.5); WHITE BLOOD COUNT 7.8 10*3/uL (4.8-10.8)
[2017-01-12 08:00] VITALS: BP 121/52
--- NOTE | 2017-01-12 11:08 | NUR ---
PT ASSISTED OUT OF BED UP TO CHAIR WITH 2 ASSIST NEEDED.
[2017-01-12 12:00] VITALS: BP 119/67
--- NOTE | 2017-01-12 13:45 | NUR ---
PHYSICAL THERAPY Patient transfered to ICCU-1. New order to re-eval when medically appropriate. Briana Campuzano, CONSTRUCTION MANAGEMENT ASSISTANT
--- NOTE | 2017-01-12 19:50 | NUR ---
PT PLEASANT AND COOPERATIVE DURING ASSESSMENT AT THIS TIME. CALL LIGHT IN REACH. IN VIEW OF ICU STAFF. BED EXIT ALARM ON FOR SAFETY RE: EPISODES OF CONFUSION.
[2017-01-12 20:00] VITALS: BP 108/58
--- NOTE | 2017-01-12 23:39 | NUR ---
RESTING CALMLY IN BED. REMAINS CONFUSED BUT IS COOPERATIVE AT THIS TIME. IN VIEW OF ICU STAFF...BED EXIT ALARM ON.
[2017-01-12 23:58] VITALS: BP 118/60
--- NOTE | 2017-01-13 01:20 | NUR ---
COMPLETE BATH AND BED LINEN CHANGE DONE. PT TOLERATED WELL AND IS NOW SLEEPING.
[2017-01-13 04:00] VITALS: BP 159/57
--- NOTE | 2017-01-13 04:51 | NUR ---
SLEEPING WITH EVEN, UNLABORED RESPIRATIONS.
[2017-01-13 05:46] LABS: ALBUMIN 2.7 gm/dl (3.1-4.5); ALKALINE PHOSPHATASE 78 U/L (45-117); BUN 25 mg/dl (7-24); CHLORIDE 101 mmol/L (98-107); CREATININE 1.04 mg/dL (0.55-1.02); POTASSIUM 3.5 mmol/L (3.5-5.1); SGOT/AST 22 IU/L (3-35); SGPT/ALT 17 U/L (12-78); SODIUM 141 mmol/L (136-145); TOTAL PROTEIN 6.5 gm/dL (6.4-8.2)
[2017-01-13 06:00] LABS: PREALBUMIN 10 mg/dl (20-40)
[2017-01-13 06:03] LABS: BASO # 0.1 10*3/uL (0.0-0.1); BASO % 0.7 % (0.0-1.0); EOS # 0.1 10*3/uL (0.0-0.4); EOS % 1.5 % (1.0-4.0); HEMOGLOBIN 8.2 g/dl (12.0-16.0); LYMPH # 0.6 10*3/uL (1.3-4.4); LYMPH % 8.2 % (27.0-41.0); MEAN CELL VOLUME 93.5 fl (81.0-99.0); MEAN CORPUSCULAR HGB 29.5 pg (27.0-31.0); MEAN CORPUSCULAR HGB CONC 31.5 g/dl (33.0-37.0); MEAN PLATELET VOLUME 10.9 fl (9.6-12.3); MONO # 0.7 10*3/uL (0.1-1.0); MONO % 9.7 % (3.0-9.0); NEUT # 5.4 10*3/uL (2.3-7.9); NEUT % 79.3 % (47.0-73.0); PLATELET COUNT AUTOMATED 205 10*3/uL (130-400); RED BLOOD COUNT 2.78 10*6/uL (4.10-5.10); RED CELL DISTRI WIDTH 13.4 % (0-14.5); WHITE BLOOD COUNT 6.8 10*3/uL (4.8-10.8)
[2017-01-13 08:00] VITALS: BP 116/59
[2017-01-13 12:00] VITALS: BP 117/55
[2017-01-13 16:00] VITALS: BP 117/57
--- NOTE | 2017-01-13 17:18 | NUR ---
UP TO RECLINER X 2 MAX ASSIST
--- NOTE | 2017-01-13 17:22 | NUR ---
DR GARG UPDATED ON LOW OUTPUT THIS SHIFT
[2017-01-13 20:00] VITALS: BP 101/47
--- NOTE | 2017-01-13 20:19 | NUR ---
PT. RESTING IN BED WATCHING TV. HEP LOCK IN CORINA ASYMPT. LUNGS DIMINISHED BUT CLEAR BILAT, PULSE OX 97% ON 3L NC. ABDOMEN SOFT, NONDISTENDED AND NORMO. RIGHT HIP DRESSING D/I. KNEE HIGH ASHOK HOSE BILAT. PT. DENIES PAIN OR DISCOMFORT. VIRY GUERRA RN
--- NOTE | 2017-01-13 21:33 | NUR ---
PT. GIVEN [place] FOR PAIN AT 2102. COMPLAINS OF GENERLIZED PAIN "FROM LAYING". VIRY GUERRA RN
--- NOTE | 2017-01-13 22:45 | NUR ---
DR. DE LEON NOTIFIED OF PTS INABILITY TO VOID, ORDERS RECEIVED.
--- NOTE | 2017-01-13 22:45 | NUR ---
PT. SLEEPING, NORCO EFFECTIVE.
--- NOTE | 2017-01-13 22:53 | NUR ---
PT. UNABLE TO VOID, BLADDER SCANNED FOR 0CC'S URINE, RECHECKED BY 2 RN'S WITH SAME RESULTS. STRAIGHT CATHED FOR LESS THAN 100CC'S DARK YELLOW URINE. BOLUS OF NS GIVEN ORDERED.
[2017-01-14] VITALS: BP 98/43
--- NOTE | 2017-01-14 03:10 | NUR ---
PT. GIVEN NORCO ORDERED FOR MOANING DUE TO RIGHT TOE PAIN. VIRY GUERRA RN
[2017-01-14 04:00] VITALS: BP 109/46
--- NOTE | 2017-01-14 04:05 | NUR ---
PT. SLEEPING, NORCO EFFECTIVE.
[2017-01-14 05:59] LABS: BUN 26 mg/dl (7-24); CHLORIDE 106 mmol/L (98-107); CREATININE 0.86 mg/dL (0.55-1.02); POTASSIUM 3.6 mmol/L (3.5-5.1); SODIUM 141 mmol/L (136-145)
[2017-01-14 08:00] VITALS: BP 116/54
--- NOTE | 2017-01-14 08:15 | NUR ---
Patient evaluated for OT 01/09/17 then transferred to [facility] 01/10/17 due to change in medical status. OT will need an new order to treat when medically necessary. Thank you for this referral. Heather Cabrera OTR/l
--- NOTE | 2017-01-14 08:18 | NUR ---
OCCUPATIONAL THERAPY CO-SIGN I approve of the Occupational Therapy notes written above. MIKE SIMMONS OTR/[place]
--- NOTE | 2017-01-14 09:51 | NUR ---
Bedside Eval. Preliminary report Patient demonstrated timely swallow with good oral awareness and no oral residue on thin liquids. Patient resistant to solids or foods as she reports she just fininshed breakfast. Patient denies any difficulty swallowing and nursing reports no difficulty as well as clear lungs including recent chest xray. Patient good historian for recent medica procedures and is oriented times 4 today. No swallowing therpay or further testing recommended at this time and nursing phoned physician to cancel MBS based on normal oral and pharyngeal phases of swallow as no overt s/s aspiration noted at bedside. Sherita Foote MA CCC-PIPE AND TANK FABRICATOR
--- NOTE | 2017-01-14 10:38 | NUR ---
UP TO CHAIR X 2 ASSIST
--- NOTE | 2017-01-14 10:55 | NUR ---
Patient is being referred to the [facility] in [place]. Will fax PT and OT notes when available for precert.
[2017-01-14 11:01] LABS: CKMB 2.7 ng/ml (0.5-3.6)
[2017-01-14 12:00] VITALS: BP 88/48
--- NOTE | 2017-01-14 13:23 | NUR ---
Occupational Therapy evaluation completed this date in [facility] with full eval to follow. Precautions include WBAT RLE, ICCU,O2 dependent,fall risk, h/o falls, high complexity level 27863. Recommend OT per POC and SNF upon d/c to return to PLOF. Thank you for this referral. Heather Cabrera OTR/L
--- NOTE | 2017-01-14 13:29 | NUR ---
Daughter Mini called and stated she wanted patient referred to [facility] in [place]. checking to see if facility accepts patients insurance. Called and spoke to Sania who stated they are in network for [facility]. will fax referral, will require precert.
--- NOTE | 2017-01-14 13:37 | NUR ---
Faxed referral to [facility], waiting on acceptance/precert
--- NOTE | 2017-01-14 15:47 | NUR ---
ADAMARIS FOWLER [id number] Please refer to the physician's history and physical for past medical history, comorbid conditions, and allergies. Diagnosis: FRACTURE OF HIP, RIGHT, CLOSED Sanjay Score: 15,AT RISK WOUND DESCRIPTIONS: Location of the wound: right upper arm Type of wound: skin tear Thickness: Partial Size: 1 cm x 2 cm x 0.1cm Tunneling: none] Undermining: none Sinus Tract: none Presence of Exudate: Serous Amount: Light Color: Red Odor: None Periwound Skin Appearance: Normal Wound edges: approximated Pain (associated with wound): patient denied at time of assessment How does patient state this happened? patient was unsure how this happened Surface the patient is resting on: Isoflex SKIN PREVENTION RECOMMENDATION: 1. Pressure redistribution support surface as appropriate 2. Elevate heels 3. Remove boots/TEDS every shift and reapply 4. Head of bed 30 degrees as tolerated 5. Assess nutrition and hydration 6. Manage moisture 7. Avoid the use of containment devices while in bed 8. Use absorptive products on surfaces limit layers of linens on bed 9. Turn and reposition every 1-2 hours in bed and every 1 hour in chair as tolerated 10. Weight shifts every 15 minutes while up in chair 11. Offloading with pillows or device to keep heels elevated off bed 12. Monitor skin at least every shift 13. Inspect under medical devices twice a day WOUND TREATMENT RECOMMENDATIONS: Continue current orders
[2017-01-14 16:00] VITALS: BP 100/52
--- NOTE | 2017-01-14 16:27 | NUR ---
PT WALKED TO BR, SLIGHT LIMP INRIGHT LEGS BUT OTHERWISE DOING WELL
--- NOTE | 2017-01-14 19:00 | NUR ---
pt has been walked to bathroom 3 times during the 3-7 shift and walks well with minimal assist
[2017-01-14 20:00] VITALS: BP 112/37
--- NOTE | 2017-01-14 20:14 | NUR ---
PT. RESTING IN BED WATCHING TV. HEP LOCK IN CORINA ASYMPT. LUNGS CLEAR BUT DIMINISHED BILAT, PULSE OX 96% ON 3L NC. ABDOMEN SOFT, NONDISTENDED AND NORMO. NO PERIPHERAL EDEMA NOTED. VIRY GUERRA RN
--- NOTE | 2017-01-14 21:19 | NUR ---
PT. GIVEN NORCO ORDERED AT 2100 FOR GENERALIZED ACHES AND PAINS. VIRY GUERRA RN
--- NOTE | 2017-01-14 22:13 | NUR ---
PT. SLEEPING, NORCO EFFECTIVE.
--- NOTE | 2017-01-14 23:08 | NUR ---
24 HR chart check completed.
--- NOTE | 2017-01-14 23:11 | NUR ---
24 HR chart check completed.
[2017-01-15] VITALS: BP 109/51
[2017-01-15 04:00] VITALS: BP 133/53
[2017-01-15 04:49] LABS: BASO % 0.5 % (0.0-1.0); EOS # 0.4 10*3/uL (0.0-0.4); EOS % 5.5 % (1.0-4.0); HEMATOCRIT 23.3 % (37.0-47.0); HEMOGLOBIN 7.2 g/dl (12.0-16.0); LYMPH % 12.9 % (27.0-41.0); MEAN CELL VOLUME 95.5 fl (81.0-99.0); MEAN CORPUSCULAR HGB 29.5 pg (27.0-31.0); MEAN CORPUSCULAR HGB CONC 30.9 g/dl (33.0-37.0); MEAN PLATELET VOLUME 10.4 fl (9.6-12.3); MONO # 0.7 10*3/uL (0.1-1.0); MONO % 8.3 % (3.0-9.0); NEUT # 5.8 10*3/uL (2.3-7.9); NEUT % 72.3 % (47.0-73.0); PLATELET COUNT AUTOMATED 227 10*3/uL (130-400); RED BLOOD COUNT 2.44 10*6/uL (4.10-5.10); RED CELL DISTRI WIDTH 13.8 % (0-14.5); WHITE BLOOD COUNT 8.1 10*3/uL (4.8-10.8)
[2017-01-15 05:07] LABS: ALBUMIN 2.6 gm/dl (3.1-4.5); ALKALINE PHOSPHATASE 73 U/L (45-117); BUN 21 mg/dl (7-24); CHLORIDE 103 mmol/L (98-107); CREATININE 0.83 mg/dL (0.55-1.02); POTASSIUM 3.8 mmol/L (3.5-5.1); SGOT/AST 23 IU/L (3-35); SODIUM 138 mmol/L (136-145); TOTAL PROTEIN 5.8 gm/dL (6.4-8.2)
[2017-01-15 05:11] LABS: SGPT/ALT 16 U/L (12-78)
--- NOTE | 2017-01-15 05:22 | NUR ---
PATIENT C/O PAIN TO HER FEET. PATIENT WILL NOT RATE PAIN ON PAIN SCALE. MEDICATED WITH NORCO ORDERED.
[2017-01-15 08:00] VITALS: BP 105/41
--- NOTE | 2017-01-15 09:49 | NUR ---
PHYSICAL THERAPY Patient presented to therapy in a seated position with report of being tired, cold and wanting to rest. Patient agreed to therapy treatment. Patient performed seated ther ex in all planes of movement x 10 reps each with most exercises AROM, with hip flexion and LAQs requiring AAROM on L LE. Patient then transferred sit to stand with Min. A X 1. Patient stood for 20 sec. at W/W and then took 3 steps forward and back michaud with CGA X 1. Patient then had to sit in bedside chair due to being fatigued and cold. Patient transfered back to sitting position with CGA X 1 and verbal cues for putting hands back on arm rests. Patient was left in seated position with LEs raised and call light within reach. Patient was 1:1 with this MASSEUR/MASSEUSE for 20 minutes. Carloz Fofana MASSEUR/MASSEUSE
[2017-01-15 12:00] VITALS: BP 100/36
--- NOTE | 2017-01-15 12:12 | NUR ---
PATIENT SEEN 1:1 FOR OT 20 MINUTES. PATIENT IDENTIFIED BY NAME AND DATE OF . PATIENT COMPLETED SIT TO STAND FROM RECLINER MIN A WITH VERBAL CUES PROPER HAND PLACEMENT. COMPLETED FUNCTIONAL AMBULATION USE FWW TO BATHROOM MIN A. COMPLETED TOILETING MIN A WITH VERBAL CUES SAFETY. COMPLETED AMBULATION USE FWW SHORT DISTANCE TO RECLINER MIN A WITH MIN VERBAL CUES SAFETY. PATIENT VERBALIZED FEELING COLD AND TIRED. ASSISTED PATIENT WITH BLANKETS AND CALKL LIGHT WITHIN REACH WITH CHAIR RECLINED. HEATHER JORGENSEN
--- NOTE | 2017-01-15 13:02 | NUR ---
PHYSICAL THERAPY Kristin seen this PM 1:1 for her therapy treatment. Pt was up in her bedside chair and did not want to go back to bed at this time. With verbal cueing transfer sit/stand, standing balance MOD A X 1, working on standing balance, 3-4 steps forward and back, X 2 WBAT with one sitting rest and said that she was feeling a little better. Pt's lunch in at this time and Pt wanting to eat, Pt with call light. MANJIT BRIGGS FITTING ROOM MAINTENANCE MECHANIC.
--- NOTE | 2017-01-15 13:48 | NUR ---
MEDICATED WITH PRN NORCO PER ORDER AND REQUEST.
--- NOTE | 2017-01-15 14:50 | NUR ---
Patient accepted to [facility] and precert was started on 01/14/17. Hospital exemption completed online in [employer] system, waiting on auth.
[2017-01-15 16:00] VITALS: BP 100/34
[2017-01-15 20:00] VITALS: BP 103/36
--- NOTE | 2017-01-15 20:07 | NUR ---
PT. RESTING IN BED. HEP LOCK IN CORINA ASYMPT. LUNGS DIMINISHED BUT CLEAR BILAT, PULSE OX 94% ON 3L NC. ABDOMEN SOFT, NONDISTENDED AND NORMO. NO PERIPHERAL EDEMA NOTED. R HIP DRESSING D/I, PEDAL PULSES PRESENT. RESP. EASY AND REG ,NO DISTRESS. VIRY GUERRA RN
--- NOTE | 2017-01-15 21:27 | NUR ---
NORCO GIVEN AT 2115 PER PT REQUEST FOR PAIN MEDICATION FOR GENERALIZED ACHES AND PAINS. VIRY GUERRA RN
--- NOTE | 2017-01-15 22:16 | NUR ---
PT. SLEEPING, NORCO EFFECTIVE.
[2017-01-16] VITALS: BP 111/57
--- NOTE | 2017-01-16 00:20 | NUR ---
RESTING IN BED WITH EYES CLOSED. APPEARS TO BE SLEEPING. HOB ELEVATED. SIDE RAILS UP X'S 2. CALL LIGHT IN REACH. HEP LOCK INTACT. NO DISTRESS NOTED.
[2017-01-16 04:00] VITALS: BP 109/52
--- NOTE | 2017-01-16 04:14 | NUR ---
REMAINS SLEEPING WITHOUT DISTRESS.
[2017-01-16 04:37] LABS: BASO % 0.6 % (0.0-1.0); EOS # 0.4 10*3/uL (0.0-0.4); EOS % 5.4 % (1.0-4.0); HEMATOCRIT 24.4 % (37.0-47.0); HEMOGLOBIN 7.5 g/dl (12.0-16.0); LYMPH # 1.1 10*3/uL (1.3-4.4); LYMPH % 15.6 % (27.0-41.0); MEAN CELL VOLUME 96.8 fl (81.0-99.0); MEAN CORPUSCULAR HGB 29.8 pg (27.0-31.0); MEAN CORPUSCULAR HGB CONC 30.7 g/dl (33.0-37.0); MEAN PLATELET VOLUME 10.5 fl (9.6-12.3); MONO # 0.7 10*3/uL (0.1-1.0); MONO % 9.2 % (3.0-9.0); NEUT # 4.9 10*3/uL (2.3-7.9); NEUT % 68.5 % (47.0-73.0); PLATELET COUNT AUTOMATED 241 10*3/uL (130-400); RED BLOOD COUNT 2.52 10*6/uL (4.10-5.10); RED CELL DISTRI WIDTH 14.2 % (0-14.5); WHITE BLOOD COUNT 7.2 10*3/uL (4.8-10.8)
[2017-01-16 04:51] LABS: BUN 21 mg/dl (7-24); CHLORIDE 103 mmol/L (98-107); CREATININE 0.86 mg/dL (0.55-1.02); PHOSPHOROUS 3.5 mg/dL (2.5-4.9); SODIUM 139 mmol/L (136-145)
--- NOTE | 2017-01-16 05:21 | NUR ---
0500 AWAKE AND YELLING "HELP". C/O PAIN R FOOT. REPOSITIONED IN BED. NORCO PO FOR C/O'S PAIN. DOES NOT RATE. OFFERED BEDPAN, DENIES NEED TO VOID AT PRESENT. WILL MONITOR.
--- NOTE | 2017-01-16 06:03 | NUR ---
EARLIER NORCO SL EFFECTIVE. CONT TO MOAN AT INTERVALS. NO SPECIFIC C/O'S NOW. DRSG REMAINS D/I TO RI HIP. NO DISTRESS NOTED. CONDITION GUARDED.
[2017-01-16 08:00] VITALS: BP 109/64
--- NOTE | 2017-01-16 10:52 | NUR ---
DR. CONTRERAS AND DR. JASE LOUIS.
[2017-01-16 12:00] VITALS: BP 108/36
--- NOTE | 2017-01-16 13:38 | NUR ---
Recieved authorization for patient to go to [facility] in [place]. Patient can go when stable for discharge.
--- NOTE | 2017-01-16 13:41 | NUR ---
PHYSICAL THERAPY Kristin seen this AM 1:1 for her therapy session having no new complaints. Pt is WBAT right LE and doing well with this. Transfer supine/sit MOD A X 1, sitting balance supervision X 1, X 5 min, said that she was a little dizzy. Transfer sit/stand and standing balance X 4 with MOD X 1, with standing balanc to tolerance each time. Then pivot and pairer substandard front of her bedside chair, then up sitting with call light breakfast in. MANJIT BRIGGS JIGGER ARTISAN.
--- NOTE | 2017-01-16 13:48 | NUR ---
PHYSICAL THERAPY Back this PM to treat Kristin, Pt was up in his bedside chair from this morning sleeping. Transfer sit/stand, standing balance with weight shift with MOD X 1, and WBAT right LE, X 3, with sitting rest after each stand. Followed by transfer back into bed MOD A X 1, and wanting to sleep at this time. MANJIT BRIGGS MECHANICAL ASSEMBLY TECHNICIAN.
[2017-01-16] MEDS ORDERED: TYLENOL325 M2 PO (14:48)
[2017-01-16] MEDS ORDERED: DUONEB 3 MG/3 ML3 M1 NEB (14:48)
[2017-01-16] MEDS ORDERED: METOPROLOL SUCC25 M2 PO (14:48)
[2017-01-16] MEDS ORDERED: ATORVASTATIN CA20 M1 PO (14:48)
[2017-01-16] MEDS ORDERED: ASPIRIN ADULT L81 M2 PO (14:48)
[2017-01-16] MEDS ORDERED: ENOXAPARIN30 MG/0.2 SC (14:48)
[2017-01-16] MEDS ORDERED: PANTOPRAZOLE SO40 MG PO (14:48)
--- NOTE | 2017-01-16 14:58 | NUR ---
Patient is being discharged to [facility], transportation scheduled for 5 PM with [facility]. OR and nursing notified.
[2017-01-16 16:00] VITALS: BP 107/37
--- NOTE | 2017-01-16 16:15 | NUR ---
PT AND PT'S DAUGHTER REFUSE DISCHARGE PICTURES.
--- NOTE | 2017-01-16 17:32 | NUR ---
PATIENT TRANSFERED TO [facility] VIA [facility].
--- NOTE | 2017-01-16 17:51 | NUR ---
NURSE TO NURSE REPORT GIVEN TO [facility].
--- NOTE | 2017-01-17 09:12 | NUR ---
PHYSICAL THERAPY CO-SIGN I approve of the Phyical Therapy notes written above. DUNG VAZQUEZ PT
--- NOTE | 2017-01-17 12:01 | NUR ---
OCCUPATIONAL THERAPY CO-SIGN I approve of the Occupational Therapy notes written above. MIKE SIMMONS OTR/[place]
== END 2017-01-16 17:32 | disposition other institution (70) | DRG 480 ==
LOC: ED 21:02 → 4E 22:59 → 5E 22:59 → ICCU 22:59 → 4E 01-11 10:58 → ICCU 01-12 00:07
PROVIDERS: Emergency Medicine; Emergency Medicine Emergency Medical Services; Hospitalist; Internal Medicine; Internal Medicine Cardiovascular Disease; Internal Medicine Critical Care Medicine; Internal Medicine Nephrology; Orthopaedic Surgery; ADMIT Internal Medicine
PROC: 0QS604Z Reposition Right Upper Femur with Internal Fixation Device, Open Approach (ICD-10-PCS; principal; 2017-01-09)
DX: S72.141A Displaced intertrochanteric fracture of right femur, initial encounter for closed fracture (principal); J69.0 Pneumonitis due to inhalation of food and vomit; J96.21 Acute and chronic respiratory failure with hypoxia; E43 Unspecified severe protein-calorie malnutrition; G93.41 Metabolic encephalopathy; J90 Pleural effusion, not elsewhere classified; J96.22 Acute and chronic respiratory failure with hypercapnia; J98.11 Atelectasis; J44.1 Chronic obstructive pulmonary disease with (acute) exacerbation; N18.3 Chronic kidney disease, stage 3 (moderate); D72.825 Bandemia; R73.9 Hyperglycemia, unspecified; R31.9 Hematuria, unspecified; D64.9 Anemia, unspecified; E83.39 Other disorders of phosphorus metabolism; R53.81 Other malaise; F03.90 Unspecified dementia, unspecified severity, without behavioral disturbance, psychotic disturbance, mood disturbance, and anxiety; E78.5 Hyperlipidemia, unspecified; E03.9 Hypothyroidism, unspecified; W18.39XA Other fall on same level, initial encounter; Z99.81 Dependence on supplemental oxygen; Z88.0 Allergy status to penicillin; Z90.49 Acquired absence of other specified parts of digestive tract; Y93.89 Activity, other specified; Y92.090 Kitchen in other non-institutional residence as the place of occurrence of the external cause; Y99.8 Other external cause status; Z87.891 Personal history of nicotine dependence; Z68.20 Body mass index [BMI] 20.0-20.9, adult